=== PATIENT | male | born 1990 | race Caucasian/White ===

== ENCOUNTER → 2016-08-03 13:09 | Emergency (ER) | payer BC, MEDICAID ==
[2016-08-03 13:43] LABS: Hematocrit 37 % (42-52); Hemoglobin 12.4 g/dl (14.0-18.0); Mean Corpuscular HGB Conc 34 g/dl (31-36); Mean Corpuscular Hemoglobin 29 pg (27-31); Mean Corpuscular Volume 85 fL (80-94); Mean Platelet Volume 9 um3 (7.4-10.4); Red Blood Count 4.32 10^6/ul (4.0-5.4); Red Cell Distribution Width 13 % (10.5-15); White Blood Count 9.7 10^3/ul (3.5-10.8)
[2016-08-03 13:48] LABS: Add Diff/Slide Review? Slide Review Added; Comments Flag Yes
[2016-08-03 13:59] LABS: Albumin 4.5 g/dL (3.2-5.2); BUN/Creatinine Ratio 35.1 (8-20); Calcium 9.9 mg/dL (8.6-10.3); EGFR African American 165.7 (>60); EGFR Non-African American 128.9 (>60); Globulin 3.2 g/dL (2-4); Potassium 3.6 mmol/L (3.5-5.0); Total Bilirubin 0.3 mg/dL (0.2-1.0); Total Protein 7.7 g/dL (6.4-8.9)
[2016-08-03 15:15] LABS: Urine Bilirubin Negative (Negative); Urine Glucose Negative (Negative); Urine Nitrite Negative (Negative)
--- NOTE | 2016-08-03 15:38 | ED ---
Tyson Richardson Rebecca, scribed for Santos Bunn MD on 08/03/16 at 1338 . Abdominal Pain/Male - HPI Summary HPI Summary: Pt is a 25 y/o M BIBA who presents to ED from [facility] c/o abdominal pain. Sx began gradually 18 days ago and have been intermittent since onset, present only after eating. Pain is discrete to the RUQ and characterized as burning. Currently sx are not present, ranking pain as 0/10. Sx aggravated by food, alleviated by nothing. Additionally c/o diarrhea. Denies melena, vomiting. Denies SIs. Confirms taking Tylenol and Ibuprofen every day recently for dental pain. Has never seen a GI. States "I have stopped seeing doctors" when asked about his PCP. SHx recovering alcoholic and reports opiate use "a long time ago. " - History of Current Complaint Chief Complaint: EDAbdPain Stated Complaint: HEARTBURN Time Seen by Provider: 08/03/16 13:20 Hx Obtained From: Patient Onset/Duration: Gradual Onset Timing: Intermittent Severity Initially: Moderate Severity Currently: None Pain Intensity: 0 Pain Scale Used: 0-10 Numeric Location: Discrete At: RUQ Radiates: No Character: Burning Aggravating Factor(s): Food Alleviating Factor(s): Nothing Associated Signs And Symptoms: Positive: Diarrhea, Other - Denies melena, SIs. Negative: Vomiting - Allergies/Home Medications Allergies/Adverse Reactions: Allergies Allergy/AdvReac Type Severity Reaction Status Date / Time No Known Allergies Allergy Verified 08/03/16 13:18 PMH/Surg Hx/FS Hx/Imm Hx Endocrine/Hematology History: Denies: Hx Diabetes Cardiovascular History: Denies: Hx Coronary Artery Disease, Hx Hypertension Infectious Disease History: No Infectious Disease History: Denies: Traveled Outside the [place] in Last 30 Days - Family History Known Family History: Positive: Diabetes - grandmother - Social History Alcohol Use: None Alcohol Amount: pt currently at [facility] for [facility] abuse Substance Use Type: Reports: Cocaine Substance Use Comment - Amount & Last Used: patient hasn't used for 2 months- at [facility] Smoking Status (MU): Heavy Every Day Tobacco Smoker Review of Systems Negative: Fever, Chills Negative: Erythema Negative: Sore Throat Negative: Chest Pain Negative: Shortness Of Breath, Cough Positive: Abdominal Pain - RUQ burning after eating, Diarrhea. Negative: Vomiting Positive: other - Denies melena. Negative: dysuria, hematuria Negative: Myalgia, Edema Negative: Rash Neurological: Other - Negative dizziness Positive: Other - Denies SIs All Other Systems Reviewed And Are Negative: Yes Physical Exam - Summary Physical Exam Summary: Constitutional: Well-developed, Well-nourished, Alert. (-) Distressed Skin: Warm, Dry HENT: Normocephalic; Atraumatic Eyes: Conjunctiva normal Neck: Musculoskeletal ROM normal neck. (-) JVD, (-) Stridor, (-) Tracheal deviation Cardio: Rhythm regular, rate normal, Heart sounds normal; Intact distal pulses; The pedal pulses are 2+ and symmetric. Radial pulses are 2+ and symmetric. (-) Murmur Pulmonary/Chest wall: Effort normal. (-) Respiratory distress, (-) Wheezes, (-) Rales Abd: Soft, (-) Tenderness, (-) Distension, (-) Guarding, (-) Rebound Musculoskeletal: (-) Edema Lymph: (-) Cervical adenopathy Neuro: Alert, Oriented x3 Psych: Mood and affect Normal Triage Information Reviewed: Yes Vital Signs On Initial Exam: Initial Vitals Temp Pulse Resp BP Pulse Ox 98.8 F 69 20 133/78 97 08/03/16 13:20 08/03/16 13:20 08/03/16 13:20 08/03/16 13:20 08/03/16 13:20 Vital Signs Reviewed: Yes - [place] Coma Scale Coma Scale Total: 15 Diagnostics - Vital Signs Vital Signs Temp Pulse Resp BP Pulse Ox 08/03/16 13:20 98.8 F 69 20 133/78 97 - Laboratory Result Diagrams: 08/03/16 13:32 08/03/16 13:32 Lab Statement: Any lab studies that have been ordered have been reviewed, and results considered in the medical decision making process. Re-Evaluation - Re-Evaluation First Eval Re-Evaluation Time: 15:06 Change: Improved Comment: Discussed D/C with pt. Pt is feeling significantly better. Abdominal Pain Fem Course/Dx - Course Assessment/Plan: Pt is a 25 y/o M who presents to ED c/o RUQ burning and diarrhea after eating for 18 days. Sx aggravated by food. Denies melena, vomiting. SHx recovering alcoholic - is at [facility]. Recently has been taking Ibuprofen and Tylenol every day for dental pain. Strong suspicion for alcohol or NSAID gastritis. He will be D/C to home with a Dx of gastritis with a follow up with GI and his PCP in 3-5 days. He is agreeable with this plan. - Diagnoses Provider Diagnoses: Gastritis Discharge - Discharge Plan Condition: Stable Disposition: HOME Prescriptions: Omeprazole CAP* [Prilosec CAP* 20 MG] 20 mg PO BID #60 cap.dr Patient Education Materials: Gastritis (ED) Referrals: [facility] [place] PHYSICIAN REFERRAL [Outside] - 5 Days (Follow up in 3-5 days. ) Kane Schroeder MD [Medical Doctor] - 5 Days (Follow up in 3-5 days. ) Additional Instructions: RETURN TO THE EMERGENCY DEPARTMENT FOR CHANGING OR WORSENING SYMPTOMS The documentation as recorded by the Tyson junior Rebecca accurately reflects the service I personally performed and the decisions made by , Santos Bunn MD.
[2016-08-03 15:43] LABS: Eosinophils % 7 % (0-6); Immature Granulocytes 4 % (0-9); Myelocytes % 3 % (0-1); Neutrophil % 53 % (38-83); RBC Morphology Normal (Normal); Reactive Lymph % 4 % (0-6)
== END | disposition home or self-care (01) ==
LOC: ED 13:09
DX: K29.70 Gastritis, unspecified, without bleeding (principal); F17.200 Nicotine dependence, unspecified, uncomplicated
CPT/HCPCS: 36415; 80053; 81003; 83605; 83690; 85025; 87389; 99282; G0475

== ENCOUNTER 2016-08-22 14:41 | Inpatient (IN) | payer BC, MEDICAID ==
[2016-08-22 15:30] LABS: Hematocrit 38 % (42-52); Hemoglobin 12.7 g/dl (14.0-18.0); Mean Corpuscular HGB Conc 34 g/dl (31-36); Mean Corpuscular Hemoglobin 29 pg (27-31); Mean Corpuscular Volume 85 fL (80-94); Mean Platelet Volume 10 um3 (7.4-10.4); Red Blood Count 4.43 10^6/ul (4.0-5.4); Red Cell Distribution Width 13 % (10.5-15)
[2016-08-22 15:47] LABS: Urine Bilirubin Negative (Negative); Urine Glucose Negative (Negative); Urine Nitrite Negative (Negative)
[2016-08-22 15:48] LABS: ALT 7 U/L (7-52); AST 16 U/L (13-39); Albumin 4.5 g/dL (3.2-5.2); Alkaline Phosphatase 48 U/L (34-104); Anion Gap 3 mmol/L (2-11); BUN/Creatinine Ratio 18.3 (8-20); Blood Urea Nitrogen 15 mg/dL (6-24); CO2 Carbon Dioxide 31 mmol/L (22-32); Calcium 9.5 mg/dL (8.6-10.3); Chloride 105 mmol/L (101-111); EGFR African American 147.2 (>60); EGFR Non-African American 114.5 (>60); Globulin 2.9 g/dL (2-4); Glucose 93 mg/dL (70-100); Potassium 3.7 mmol/L (3.5-5.0); Sodium 139 mmol/L (133-145); Total Protein 7.4 g/dL (6.4-8.9)
--- NOTE | 2016-08-22 15:51 | ED ---
Psychiatric Complaint - HPI Summary HPI Summary: Patient is currently a resident at [facility]. He has been there for 21 days and has increasing depression from his relationship issues and not being able to see his kids while he is away. He feels he is getting worse and has found himself feeling short with people at [facility]. He has a counselor he rarely sees and is not on any daily medications. - History Of Current Complaint Chief Complaint: EDMentalHealth Time Seen by Provider: 08/22/16 14:58 Hx Obtained From: Patient Onset/Duration: Gradual Onset, Lasting Days, Still Present Timing: Constant Severity Initially: Moderate Severity Currently: Severe Character: Depressed, Angry Aggravating Factor(s): Recent Stress - rehab and being away from his kids Alleviating Factor(s): Nothing Associated Signs And Symptoms: Positive: Social Isolation Related History: Positive For: Prior Psychiatric Issues - Allergies/Home Medications Allergies/Adverse Reactions: Allergies Allergy/AdvReac Type Severity Reaction Status Date / Time No Known Allergies Allergy Verified 08/23/16 15:59 Home Medications: Home Medications Acetaminophen TAB* [Tylenol TAB*] 325 mg PO Q6H PRN MDD 3500mg 08/23/16 [ History Confirmed 08/23/16] Aspirin TAB* [Aspirin 325 MG TAB*] 325 mg PO DAILY PRN 08/23/16 [History Confirmed 08/23/16] Bismuth Subsalicylate 2 tab PO SEE INSTRUCTIONS PRN MDD 8 08/23/16 [History Confirmed 08/23/16] Calcium Carbonate (Antacid) [Tums Ultra 1000] 500 mg PO SEE INSTRUCTIONS PRN MDD 8 08/23/16 [History Confirmed 08/23/16] Docusate Sodium 100 mg PO BID PRN 08/23/16 [History Confirmed 08/23/16] Gabapentin TAB(NF) [Neurontin 600 mg TAB(NF)] 600 mg PO TID 08/23/16 [History Confirmed 08/23/16] Guaifenesin [Eql Mucus-ER 12 Hour] 1 - 2 tab PO Q12HR PRN 08/23/16 [History Confirmed 08/23/16] Ibuprofen [Advil] 1 - 2 tab PO Q6HR PRN 08/23/16 [History Confirmed 08/23/16] Magnesium Hydroxide LIQ* [Milk of Magnesia LIQ*] 30 ml PO DAILY PRN 08/23/16 [ History Confirmed 08/23/16] Melatonin 5 mg PO BEDTIME PRN 08/23/16 [History Confirmed 08/23/16] Menthol (Mouth-Throat) [Cough Drops] 7 mg MT Q2HR PRN 08/23/16 [History Confirmed 08/23/16] Multiple Vitamin [Multi Vitamin] 1 tab PO DAILY PRN 08/23/16 [History Confirmed 08/23/16] Naltrexone [Vivitrol] 380 mg IM MONTHLY 08/23/16 [History Confirmed 08/23/16] Nicotine GUM* 2 mg PO Q2H PRN 08/23/16 [History Confirmed 08/23/16] OXcarbazepine TAB(*) [Trileptal 300 mg TAB(*)] 300 mg PO DAILY 08/23/16 [ History Confirmed 08/23/16] Omeprazole CAP* [Prilosec CAP* 20 MG] 20 mg PO DAILY 08/23/16 [History Confirmed 08/23/16] Venlafaxine TAB (NF) [Effexor TAB (NF)] 150 mg PO DAILY 08/23/16 [History Confirmed 08/23/16] cloNIDine TAB* [Catapres 0.1 MG TAB*] 0.1 mg PO Q6HR PRN 08/23/16 [History Confirmed 08/23/16] diPHENhydraMINE PO* [Benadryl PO 25 MG TAB*] 1 - 2 tab PO SEE INSTRUCTIONS PRN 08/23/16 [History Confirmed 08/23/16] hydrOXYzine PAMOATE CAP* [Vistaril CAP*] 25 mg PO Q6HR PRN 08/23/16 [History Confirmed 08/23/16] traZODone TAB* [Desyrel TAB*] 50 mg PO BEDTIME PRN 08/23/16 [History Confirmed 08/23/16] PMH/Surg Hx/FS Hx/Imm Hx Endocrine/Hematology History: Denies: Hx Diabetes Cardiovascular History: Denies: Hx Coronary Artery Disease, Hx Hypertension Psychiatric History: Reports: Hx Depression, Hx Bipolar Disorder Infectious Disease History: No Infectious Disease History: Denies: Traveled Outside the [place] in Last 30 Days - Family History Known Family History: Positive: Diabetes - grandmother - Social History Occupation: Unemployed Lives: [facility] Alcohol Use: None Alcohol Amount: pt currently at [facility] for [facility]TO[facility] abuse Substance Use Type: Reports: Cocaine Substance Use Comment - Amount & Last Used: patient hasn't used for 2 months- at [facility] Smoking Status (MU): Heavy Every Day Tobacco Smoker Cessation Counseling: Patient Advised to Stop Review of Systems Positive: Depressed All Other Systems Reviewed And Are Negative: Yes Physical Exam Triage Information Reviewed: Yes Vital Signs On Initial Exam: Initial Vitals Temp Pulse Resp BP Pulse Ox 98.3 F 69 14 126/67 96 08/22/16 15:01 08/22/16 15:01 08/22/16 15:01 08/22/16 15:01 08/22/16 15:01 Vital Signs Reviewed: Yes Appearance: Positive: Well-Appearing, No Pain Distress, Well-Nourished Skin: Positive: Warm, Skin Color Reflects Adequate Perfusion, Dry, Soft Head/Face: Positive: Normal Head/Face Inspection Eyes: Positive: EOMI, ADEBAYO, Conjunctiva Clear ENT: Positive: Hearing grossly normal Respiratory/Lung Sounds: Positive: Clear to Auscultation, Breath Sounds Present Cardiovascular: Positive: RRR Abdomen Description: Positive: Nontender, Soft Bowel Sounds: Positive: Present Musculoskeletal: Negative: Edema Left, Edema Right Neurological: Positive: Sensory/Motor Intact, Alert, Oriented to Person Place, Time, NV Bundle Intact Distally, Normal Gait Psychiatric: Positive: Depressed AVPU Assessment: Alert - [place] Coma Scale Coma Scale Total: 15 Diagnostics - Vital Signs Vital Signs Temp Pulse Resp BP Pulse Ox 08/22/16 15:01 98.3 F 69 14 126/67 96 - Laboratory Lab Results: Lab Results 08/22/16 08/22/16 Range/Units 15:20 15:30 WBC 9.0 (3.5-10.8) 10^3/ul RBC 4.43 (4.0-5.4) 10^6/ul Hgb 12.7 L (14.0-18.0) g/dl Hct 38 L (42-52) % MCV 85 (80-94) fL MCH 29 (27-31) pg MCHC 34 (31-36) g/dl RDW 13 (10.5-15) % Plt Count 154 (150-450) 10^3/ul MPV 10 (7.4-10.4) um3 Neut % (Auto) 60.9 (38-83) % Lymph % (Auto) 26.2 (25-47) % [place] % (Auto) 9.0 (1-9) % Eos % (Auto) 3.0 (0-6) % Baso % (Auto) 0.9 (0-2) % Absolute Neuts (auto) 5.5 (1.5-7.7) 10^3/ul Absolute Lymphs (auto) 2.4 (1.0-4.8) 10^3/ul Absolute Monos (auto) 0.8 (0-0.8) 10^3/ul Absolute Eos (auto) 0.3 (0-0.6) 10^3/ul Absolute Basos (auto) 0.1 (0-0.2) 10^3/ul Absolute Nucleated RBC 0.01 10^3/ul Nucleated RBC % 0.1 Urine Color Yellow Urine Appearance Clear Urine pH 5.0 (5-9) Ur Specific Ach[place] 1.020 (1.010-1.030) Urine Protein Negative (Negative) Urine Ketones Negative (Negative) Urine Blood Negative (Negative) Urine Nitrate Negative (Negative) Urine Bilirubin Negative (Negative) Urine Urobilinogen Negative (Negative) Ur Leukocyte Esterase Negative (Negative) Urine Glucose Negative (Negative) Urine Ascorbic Acid * H (Negative) Result Diagrams: 08/22/16 15:20 08/22/16 15:20 Lab Statement: Any lab studies that have been ordered have been reviewed, and results considered in the medical decision making process. Course/Dx - Differential Dx/Clinical Impression Differential Diagnosis/HQI/PQRI: Positive: Acute Psychosis, Alcohol Intoxication , Anxiety, Bipolar Disorder, Depression, Homicidal Ideation, Schizophrenia, Suicidal Ideation Provider Diagnosis: Persistent mood [affective] disorder, unspecified - Physician Notifications Patient Is Medically Stable For: Psych Evaluation Discharge - Discharge Plan Condition: Stable Disposition: ADMITTED TO [facility]
[2016-08-22 16:21] LABS: Benzodiazepine Urine Screen None Detected (None Detect)
[2016-08-22 16:22] LABS: Acetaminophen < 15 mcg/mL; Alcohol < 10 mg/dL (<10); Salicylate < 2.50 mg/dL (<30)
[2016-08-22 16:28] LABS: TSH (Thyroid Stimulating Horm) 0.82 mcIU/mL (0.34-5.60)
[2016-08-22] MEDS ORDERED: LORazepam TAB(*) 1 MG PO ONE (21:52)
[2016-08-23] MEDS ORDERED: diPHENhydraMINE PO* 50 MG ONE (00:55)
[2016-08-23] MEDS ORDERED: Nicotine GUM* 2 MG PO PRN ×2 (00:55→18:09)
[2016-08-23] MEDS ORDERED: Al Hydrox/Mg Hydrox/Simet LIQ* 30 ML UDC PO PRN (00:55)
[2016-08-23] MEDS ORDERED: Acetaminophen TAB* 325 MG PO PRN (00:55)
[2016-08-23] MEDS ORDERED: diPHENhydraMINE PO* 50 MG PO PRN (01:17)
[2016-08-23] MEDS: Vitamin THERAPEUTIC TAB PO SCH (09:10)
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
[2016-08-23] MEDS ORDERED: Aspirin TAB* 325 MG PO PRN (18:09)
[2016-08-23] MEDS: cloNIDine TAB* 0.1 MG PO PRN (18:20)
[2016-08-23] MEDS ORDERED: Mouth Piece, Nicotine* 1 EACH CARTRIDGE INH ONE (19:00)
[2016-08-23] MEDS ORDERED: Mouth Piece, Nicotine* 1 EACH CARTRIDGE ONE ×2 (19:03→19:05)
[2016-08-23] MEDS: Nicotine Inhaler* 10 MG AMP INH PRN (19:06)
[2016-08-23] MEDS: OXcarbazepine TAB(*) 300 MG PO SCH (20:43)
[2016-08-23] MEDS: Gabapentin CAP(*) 300 MG PO SCH (20:44)
[2016-08-23] MEDS: traZODone TAB* 50 MG TAB PO PRN (22:20)
[2016-08-24] MEDS: Venlafaxine EXT RELEASE CAP* 75 MG PO SCH (08:33)
[2016-08-24] MEDS: Gabapentin CAP(*) 300 MG PO SCH ×3 (08:34→20:26)
[2016-08-24] MEDS: Vitamin THERAPEUTIC TAB PO SCH (08:34)
[2016-08-24] MEDS: Omeprazole CAP* 20 MG PO SCH (08:34)
[2016-08-24] MEDS: OXcarbazepine TAB(*) 300 MG PO SCH ×2 (08:34→20:26)
[2016-08-24] MEDS: Nicotine Inhaler* 10 MG AMP INH PRN ×3 (08:52→21:12)
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
[2016-08-24] MEDS: cloNIDine TAB* 0.1 MG PO PRN (12:51)
--- NOTE | 2016-08-24 13:02 | PN ---
MHU: Group Therapy Note - Service Type Service Type: [id number] Group Psychotherapy - Cognitive Behavioral Group Therapy ( CBT):Patient presented in CBT programming as disorganized and disruptive in discussion and needed repeated redirection to attend to presented materials.
[2016-08-24] MEDS: traZODone TAB* 50 MG TAB PO PRN (22:04)
[2016-08-25 07:58] VITALS: BP 119/67
[2016-08-25] MEDS: Gabapentin CAP(*) 300 MG PO SCH (09:06)
[2016-08-25] MEDS: Venlafaxine EXT RELEASE CAP* 75 MG PO SCH (09:07)
[2016-08-25] MEDS: Vitamin THERAPEUTIC TAB PO SCH (09:07)
[2016-08-25] MEDS: OXcarbazepine TAB(*) 300 MG PO SCH (09:07)
[2016-08-25] MEDS: Omeprazole CAP* 20 MG PO SCH (09:08)
[2016-08-25] MEDS: Nicotine Inhaler* 10 MG AMP INH PRN (09:10)
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
--- NOTE | 2016-08-25 13:06 | PN ---
MHU: Group Therapy Note - Service Type Service Type: 70000 Group Psychotherapy - Cognitive Behavioral Group Therapy ( CBT):Patient was attentive and participatory in CBT programming this morning, and remained in good behavioral control. Patient expressed positive insights regarding relevant treatment interventions and goals.
== END 2016-08-25 12:50 | DRG 754 ==
LOC: ED 14:41 → BSU 23:38
PROVIDERS: ADMIT Psychiatry & Neurology Psychiatry; ATTEND Psychiatry & Neurology Psychiatry
PROC: GZHZZZZ Group Psychotherapy (ICD-10-PCS; principal; 2016-08-22)
DX: F32.9 Major depressive disorder, single episode, unspecified (principal); F17.200 Nicotine dependence, unspecified, uncomplicated; Z72.89 Other problems related to lifestyle; F14.90 Cocaine use, unspecified, uncomplicated; F11.90 Opioid use, unspecified, uncomplicated; Z91.5 Personal history of self-harm; Z62.810 Personal history of physical and sexual abuse in childhood; Z81.8 Family history of other mental and behavioral disorders; Z83.3 Family history of diabetes mellitus; R40.2412 Glasgow coma scale score 13-15, at arrival to emergency department
CPT/HCPCS: 36415; 80053; 80307; 80320; 80329; 81003; 84443; 85025; 90853; 99222; 99231; 99238; A9270-GY; G0480